=== PATIENT | male | born 1980 | race African-American/Black ===

== ENCOUNTER 2017-08-27 07:41 | Emergency (ER) | payer BC, OTHER ==
--- NOTE | 2017-08-27 08:38 | EDM.PDOC ---
ED HPI GENERAL MEDICAL PROBLEM - General Chief Complaint: Lower Extremity Injury/Pain Stated Complaint: LEFT HIP PAIN Time Seen by Provider: 08/27/17 08:38 - History of Present Illness INITIAL COMMENTS - FREE TEXT/NARRATIVE: HISTORY AND PHYSICAL: History of present illness: Patient is a 37-year-old black male presents with concern of left buttock pain radiation down his left thigh he denies trauma numbness weakness incontinence or retention bowel or bladder he denies back pain Review of systems: As per history of present illness and below otherwise all systems reviewed and negative. Past medical history: As per history of present illness and as reviewed below otherwise noncontributory. Surgical history: As per history of present illness and as reviewed below otherwise noncontributory. Social history: No reported history of drug or alcohol abuse. Family history: As per history of present illness and as reviewed below otherwise noncontributory. Physical exam: HEENT: Atraumatic, normocephalic, pupils reactive, negative for conjunctival pallor or scleral icterus, mucous membranes moist, throat clear, neck supple, nontender, trachea midline. Lungs: Clear to auscultation, breath sounds equal bilaterally, chest nontender. Heart: S1S2, regular, negative for clicks, rubs, or JVD. Abdomen: Soft, nondistended, nontender. Negative for masses or hepatosplenomegaly. Negative for costovertebral tenderness. Pelvis: Stable nontender. Genitourinary: Deferred. Rectal: Deferred. Extremities: Patient has pain over his left sciatic notch extremities are atraumatic neurovascular exams unremarkable. Neuro: Awake, alert, oriented. Cranial nerves II through XII unremarkable. Cerebellum unremarkable. Motor and sensory unremarkable throughout. Exam nonfocal. Diagnostics: X-ray left hip CBC CMP and CRP ESR Therapeutics: None Impression: # 1 sciatica Definitive disposition and diagnosis as appropriate pending reevaluation and review of above. Left Hip Pain Score (Numeric/FACES): 9 - Related Data Allergies Allergy/AdvReac Type Severity Reaction Status Date / Time No Known Allergies Allergy Verified 08/27/17 07:45 Home Meds: Home Meds amLODIPine [Norvasc] 5 mg PO DAILY 07/16/16 [History] Past Medical History Cardiovascular History: Reports: Hypertension Neurological History: Reports: Other (See Below) Other Neuro History: hx seizure as a kid - Infectious Disease History Infectious Disease History: Reports: Chicken Pox Social & Family History - Family History Family Medical History: Noncontributory - Tobacco Use Smoking Status *Q: Never Smoker - Caffeine Use Caffeine Use: Reports: None - Alcohol Use Days Per Week of Alcohol Use: 0 - Recreational Drug Use Recreational Drug Use: No Review of Systems - Review of Systems Review Of Systems: ROS reveals no pertinent complaints other than HPI. ED EXAM, GENERAL - Physical Exam Exam: See Below (See dictation) Course - Vital Signs Last Recorded V/S: Last Vital Signs Temp 36.7 C 08/27/17 07:55 Pulse 85 08/27/17 07:55 Resp 18 08/27/17 07:55 BP 141/104 H 08/27/17 07:55 Pulse Ox 98 08/27/17 07:55 - Orders/Labs/Meds Orders: Active Orders 24 hr Category Date Time Status Hip Min 2V or 3V w Pelvis Rt [CR] Stat Exams 08/27/17 08:13 Ordered C-REACTIVE PROTEIN [CHEM] Stat Lab 08/27/17 08:30 Received CBC WITH AUTO DIFF [HEME] Stat Lab 08/27/17 08:30 Received SEDIMENTATION RATE AUTO [HEME] Stat Lab 08/27/17 08:30 Received Departure - Departure Time of Disposition: 08:37 Disposition: Home, Self-Care 01 Condition: Good Clinical Impression: Sciatica - Discharge Information Referrals: Maura Barone [employer]EM[employer] [Primary Care Provider] - Additional Instructions: The following information is given to patients seen in the emergency department who are being discharged to home. This information is to outline your options for follow-up care. We provide all patients seen in our emergency department with a follow-up referral. The need for follow-up, as well as the timing and circumstances, are variable depending upon the specifics of your emergency department visit. If you don't have a primary care physician on staff, we will provide you with a referral. We always advise you to contact your personal physician following an emergency department visit to inform them of the circumstance of the visit and for follow-up with them and/or the need for any referrals to a consulting specialist. The emergency department will also refer you to a specialist when appropriate. This referral assures that you have the opportunity for followup care with a specialist. All of these measure are taken in an effort to provide you with optimal care, which includes your followup. Under all circumstances we always encourage you to contact your private physician who remains a resource for coordinating your care. When calling for followup care, please make the office aware that this follow-up is from your recent emergency room visit. If for any reason you are refused follow-up, please contact the [facility] emergency department at and asked to speak to the emergency department charge nurse. [facility] [address] [place] [id number] Medrol Dosepak Naprosyn as prescribed pulse schedule appointment primary care clinic above return as needed as discussed - My Orders Last 24 Hours: My Active Orders 08/27/17 08:13 Hip Min 2V or 3V w Pelvis Rt [CR] Stat 08/27/17 08:30 C-REACTIVE PROTEIN [CHEM] Stat CBC WITH AUTO DIFF [HEME] Stat SEDIMENTATION RATE AUTO [HEME] Stat - Assessment/Plan Last 24 Hours: My Active Orders 08/27/17 08:13 Hip Min 2V or 3V w Pelvis Rt [CR] Stat 08/27/17 08:30 C-REACTIVE PROTEIN [CHEM] Stat CBC WITH AUTO DIFF [HEME] Stat SEDIMENTATION RATE AUTO [HEME] Stat
[2017-08-27 09:57] VITALS: BP 154/103
--- NOTE | 2017-08-28 18:41 | CR ---
EXAM DATE: 08/27/17 PATIENT'S AGE: 37 Patient: ADEEL LEON Facility: [place], [place] Site . Site : [id number] Study: XRay Extremity Left [id number]/21/2018 8:59:38 AM Ordering Physician: Dasia Mcwilliams Final Report: INDICATION: Hip pain Technique: 2 views of the left hip AP pelvis. FINDINGS: There is normal alignment. No acute fractures. Left hip joint is preserved. Bony pelvis appears intact. IMPRESSION: 1. Unremarkable study. Dictated by Tia Quevedo MD @ Aug 27 2017 9:00AM (Electronic Signature) Report Signed by Proxy. NISHA
== END 2017-08-27 09:55 | disposition home or self-care (01) ==
LOC: MW.ED 07:41
DX: M54.42 Lumbago with sciatica, left side (principal)
CPT/HCPCS: 36415; 73502-26-LT; 73502-LT; 85025; 85652; 86140; 99283

== ENCOUNTER 2020-09-09 01:34 | Emergency (ER) | payer OTHER ==
[2020-09-09] MEDS ORDERED: Sodium Chloride 0.9% 1,000 ML IV ONE (02:14)
[2020-09-09] MEDS ORDERED: Famotidine 20 MG/2 ML SDV IVPUSH ONE (02:19)
[2020-09-09] MEDS ORDERED: Alum Hydrox/Mag Hydrox/Simeth 15 ML, Lidocaine 2% 5 ML PO ONE ×2 (02:19)
--- NOTE | 2020-09-09 02:19 | EDM.PDOC ---
<Vic Hercules - Last Filed: 09/09/20 07:03> ED HPI GENERAL MEDICAL PROBLEM - General Chief Complaint: Abdominal Pain Stated Complaint: ABDOMINAL PAIN Time Seen by Provider: 09/09/20 02:15 Source of Information: Reports: Patient History Limitations: Reports: No Limitations - History of Present Illness INITIAL COMMENTS - FREE TEXT/NARRATIVE: Patient is a 40-year-old male who presents today for epigastric pain. Patient states the pain started a few hours ago and has not been associated with any events. Patient states he nothing makes the pain better has not taken any medication for it. Patient denies any nausea vomiting diarrhea. Patient that she has similar pain back in March but did not go to a hospital. Patient denies shortness of breath cough or other complaints. Abdomen Pain Score (Numeric/FACES): 10 - Related Data Allergies Allergy/AdvReac Type Severity Reaction Status Date / Time No Known Allergies Allergy Verified 09/09/20 02:14 Home Meds: Home Meds Losartan Potassium 50 mg PO DAILY 09/09/20 [History] amLODIPine Besylate [Amlodipine Besylate] 10 mg PO DAILY 09/09/20 [History] Past Medical History HEENT History: Reports: None Cardiovascular History: Reports: Hypertension Respiratory History: Reports: None Gastrointestinal History: Reports: None Genitourinary History: Reports: None Musculoskeletal History: Reports: None Neurological History: Reports: None Psychiatric History: Reports: None Endocrine/Metabolic History: Reports: None Hematologic History: Reports: None Immunologic History: Reports: None Oncologic (Cancer) History: Reports: None Dermatologic History: Reports: None - Infectious Disease History Infectious Disease History: Reports: None - Past Surgical History Head Surgeries/Procedures: Reports: None ED ROS GENERAL - Review of Systems Review Of Systems: See Below Constitutional: Reports: No Symptoms HEENT: Reports: No Symptoms Respiratory: Reports: No Symptoms Cardiovascular: Reports: No Symptoms Endocrine: Reports: No Symptoms GI/Abdominal: Reports: Abdominal Pain : Reports: No Symptoms Musculoskeletal: Reports: No Symptoms Skin: Reports: No Symptoms Neurological: Reports: No Symptoms Psychiatric: Reports: No Symptoms Hematologic/Lymphatic: Reports: No Symptoms Immunologic: Reports: No Symptoms ED EXAM, GI/ABD - Physical Exam Exam: See Below Exam Limited By: No Limitations General Appearance: Alert, WD/WN, No Apparent Distress Head: Atraumatic Respiratory/Chest: No Respiratory Distress, Lungs Clear, Normal Breath Sounds Cardiovascular: Regular Rate, Rhythm GI/Abdominal Exam: Normal Bowel Sounds, Soft, Tender (diffusely ) Extremities: Normal Inspection, Normal Capillary Refill Neurological: Alert, Oriented, CN II-XII Intact, Normal Cognition, Normal Gait #1 Interpretation EKG Date: 09/09/20 Time: 02:00 Rhythm: NSR Rate (Beats/Min): 75 ST-T: Normal Course - Re-Assessments/Exams Free Text/Narrative Re-Assessment/Exam: 09/09/20 07:03 CT scan shows some possible pericholecystic fluid with some gallbladder thickening. Will get ultrasound to confirm diagnosis. Patient has cholelithiasis with some stones in the neck. Patient has no elevation of his bilirubin or alk phos. There is slight elevation of AST ALT.we consulted general surgery because patient still has significant amount of pain. Dr. Meraz will come in and evaluate the patient to see if patient needs to have her gallbladder taken out today or can be done as outpatient. Departure - Departure Time of Disposition: 07:04 Disposition: Home, Self-Care 01 Condition: Good Clinical Impression: Abdominal pain, Cholelithiasis - Discharge Information *PRESCRIPTION DRUG MONITORING PROGRAM REVIEWED*: Not Applicable *COPY OF PRESCRIPTION DRUG MONITORING REPORT IN PATIENT SIN: Not Applicable Instructions: Abdominal Pain, Adult, Cholelithiasis Referrals: Sang Meraz MD [Physician] - 3 Days Forms: ED Department Discharge Additional Instructions: The need for follow-up, as well as the timing and circumstances, are variable depending upon the specifics of your emergency department visit. If you don't have a primary care physician on staff, we will provide you with a referral. We always advise you to contact your personal physician following an emergency department visit to inform them of the circumstance of the visit and for follow-up with them and/or the need for any referrals to a consulting specialist. The emergency department will also refer you to a specialist when appropriate. This referral assures that you have the opportunity for follow-up care with a specialist. All of these measure are taken in an effort to provide you with optimal care, which includes your follow-up. Under all circumstances we always encourage you to contact your private physician who remains a resource for coordinating your care. When calling for follow-up care, please make the office aware that this follow-up is from your recent emergency room visit. If for any reason you are refused follow-up, please contact the [facility] Emergency Department at and asked to speak to the emergency department charge nurse. If you do not have a primary care doctor, please follow up with the clinics below within 3-5 days. [facility] - General Surgery Professional Building [address] [place] [address], [address] [place] [address] - Assessment/Plan Assessment:: Patient is a 40-year-old male presents today for diffuse abdominal pain. Unclear cause of pain will obtain labs possible CT scan and provide pain control. <Sánchez Putnam - Last Filed: 09/09/20 08:13> Course - Vital Signs Last Recorded V/S: Last Vital Signs Temp 98.5 F 09/09/20 06:05 Pulse 77 09/09/20 06:05 Resp 18 09/09/20 06:05 BP 139/90 09/09/20 06:05 Pulse Ox 96 09/09/20 06:05 - Orders/Labs/Meds Labs: Laboratory Tests 09/09/20 09/09/20 09/09/20 Range/Units 02:05 02:05 02:05 WBC 7.49 (4.0-11.0) K/uL RBC 5.39 (4.50-5.90) M/uL Hgb 15.5 (13.0-17.0) g/dL Hct 43.0 (38.0-50.0) % MCV 79.8 L (80.0-98.0) fL MCH 28.8 (27.0-32.0) pg MCHC 36.0 (31.0-37.0) g/dL RDW Std Deviation 37.7 (28.0-62.0) fl RDW Coeff of [place] 13 (11.0-15.0) % Plt Count 253 (150-400) K/uL MPV 9.90 (7.40-12.00) fL Neut % (Auto) 32.7 L (48.0-80.0) % Lymph % (Auto) 60.9 H (16.0-40.0) % [place] % (Auto) 4.4 (0.0-15.0) % Eos % (Auto) 1.7 (0.0-7.0) % Baso % (Auto) 0.3 (0.0-1.5) % Neut # (Auto) 2.5 (1.4-5.7) K/uL Lymph # (Auto) 4.6 H (0.6-2.4) K/uL [place] # (Auto) 0.3 (0.0-0.8) K/uL Eos # (Auto) 0.1 (0.0-0.7) K/uL Baso # (Auto) 0.0 (0.0-0.1) K/uL Nucleated RBC % 0.0 /100WBC Nucleated RBCs # 0 K/uL Lactate 2.3 H* (0.20-2.00) mmol/L Sodium 142 (136-148) mmol/L Potassium 3.6 (3.5-5.1) mmol/L Chloride 103 (98-107) mmol/L Carbon Dioxide 26.8 (21.0-32.0) mmol/L BUN 15 (7.0-18.0) mg/dL Creatinine 1.3 (0.8-1.3) mg/dL Est Cr Clr Drug Dosing 77.21 mL/min Estimated GFR (MDRD) > 60.0 ml/min Glucose 135 H (74-106) mg/dL Calcium 9.1 (8.5-10.1) mg/dL Magnesium 1.9 (1.8-2.4) mg/dL Total Bilirubin 0.3 (0.2-1.0) mg/dL AST 66 H (15-37) IU/L ALT 74 H (14-63) IU/L Alkaline Phosphatase 71 (46-116) U/L Creatine Kinase 473 H (26-308) U/L Troponin I < 0.050 (0.000-0.056) ng/mL Total Protein 8.2 (6.4-8.2) g/dL Albumin 3.7 (3.4-5.0) g/dL Globulin 4.5 H (2.6-4.0) g/dL Albumin/Globulin Ratio 0.8 L (0.9-1.6) Lipase 178 (73-393) U/L Urine Color Urine Appearance Urine pH (5.0-8.0) Ur Specific [place] (1.001-1.035) Urine Protein (NEGATIVE) mg/dL Urine Glucose (UA) (NEGATIVE) mg/dL Urine Ketones (NEGATIVE) mg/dL Urine Occult Blood (NEGATIVE) Urine Nitrite (NEGATIVE) Urine Bilirubin (NEGATIVE) Urine Urobilinogen (<2.0) EU/dL Ur Leukocyte Esterase (NEGATIVE) Urine RBC (0-2/HPF) Urine WBC (0-5/HPF) Ur Epithelial Cells (NONE-FEW) Urine Bacteria (NEGATIVE) Urine Mucus (NONE-MOD) Influenza Type A RNA (NEGATIVE) Influenza Type B RNA (NEGATIVE) SARS-CoV-2 RNA (VY) (NEGATIVE) 09/09/20 09/09/20 09/09/20 Range/Units 03:40 04:10 04:10 WBC (4.0-11.0) K/uL RBC (4.50-5.90) M/uL Hgb (13.0-17.0) g/dL Hct (38.0-50.0) % MCV (80.0-98.0) fL MCH (27.0-32.0) pg MCHC (31.0-37.0) g/dL RDW Std Deviation (28.0-62.0) fl RDW Coeff of [place] (11.0-15.0) % Plt Count (150-400) K/uL MPV (7.40-12.00) fL Neut % (Auto) (48.0-80.0) % Lymph % (Auto) (16.0-40.0) % [place] % (Auto) (0.0-15.0) % Eos % (Auto) (0.0-7.0) % Baso % (Auto) (0.0-1.5) % Neut # (Auto) (1.4-5.7) K/uL Lymph # (Auto) (0.6-2.4) K/uL [place] # (Auto) (0.0-0.8) K/uL Eos # (Auto) (0.0-0.7) K/uL Baso # (Auto) (0.0-0.1) K/uL Nucleated RBC % /100WBC Nucleated RBCs # K/uL Lactate 1.7 (0.20-2.00) mmol/L Sodium (136-148) mmol/L Potassium (3.5-5.1) mmol/L Chloride (98-107) mmol/L Carbon Dioxide (21.0-32.0) mmol/L BUN (7.0-18.0) mg/dL Creatinine (0.8-1.3) mg/dL Est Cr Clr Drug Dosing mL/min Estimated GFR (MDRD) ml/min Glucose (74-106) mg/dL Calcium (8.5-10.1) mg/dL Magnesium (1.8-2.4) mg/dL Total Bilirubin (0.2-1.0) mg/dL AST (15-37) IU/L ALT (14-63) IU/L Alkaline Phosphatase (46-116) U/L Creatine Kinase 437 H (26-308) U/L Troponin I (0.000-0.056) ng/mL Total Protein (6.4-8.2) g/dL Albumin (3.4-5.0) g/dL Globulin (2.6-4.0) g/dL Albumin/Globulin Ratio (0.9-1.6) Lipase (73-393) U/L Urine Color YELLOW Urine Appearance CLEAR Urine pH 7.0 (5.0-8.0) Ur Specific [place] 1.010 (1.001-1.035) Urine Protein NEGATIVE (NEGATIVE) mg/dL Urine Glucose (UA) NEGATIVE (NEGATIVE) mg/dL Urine Ketones NEGATIVE (NEGATIVE) mg/dL Urine Occult Blood NEGATIVE (NEGATIVE) Urine Nitrite NEGATIVE (NEGATIVE) Urine Bilirubin NEGATIVE (NEGATIVE) Urine Urobilinogen 0.2 (<2.0) EU/dL Ur Leukocyte Esterase NEGATIVE (NEGATIVE) Urine RBC 0-2 (0-2/HPF) Urine WBC 0-1 (0-5/HPF) Ur Epithelial Cells RARE (NONE-FEW) Urine Bacteria RARE (NEGATIVE) Urine Mucus LIGHT (NONE-MOD) Influenza Type A RNA (NEGATIVE) Influenza Type B RNA (NEGATIVE) SARS-CoV-2 RNA (VY) (NEGATIVE) 09/09/20 09/09/20 Range/Units 04:10 06:00 WBC (4.0-11.0) K/uL RBC (4.50-5.90) M/uL Hgb (13.0-17.0) g/dL Hct (38.0-50.0) % MCV (80.0-98.0) fL MCH (27.0-32.0) pg MCHC (31.0-37.0) g/dL RDW Std Deviation (28.0-62.0) fl RDW Coeff of [place] (11.0-15.0) % Plt Count (150-400) K/uL MPV (7.40-12.00) fL Neut % (Auto) (48.0-80.0) % Lymph % (Auto) (16.0-40.0) % [place] % (Auto) (0.0-15.0) % Eos % (Auto) (0.0-7.0) % Baso % (Auto) (0.0-1.5) % Neut # (Auto) (1.4-5.7) K/uL Lymph # (Auto) (0.6-2.4) K/uL [place] # (Auto) (0.0-0.8) K/uL Eos # (Auto) (0.0-0.7) K/uL Baso # (Auto) (0.0-0.1) K/uL Nucleated RBC % /100WBC Nucleated RBCs # K/uL Lactate (0.20-2.00) mmol/L Sodium (136-148) mmol/L Potassium (3.5-5.1) mmol/L Chloride (98-107) mmol/L Carbon Dioxide (21.0-32.0) mmol/L BUN (7.0-18.0) mg/dL Creatinine (0.8-1.3) mg/dL Est Cr Clr Drug Dosing mL/min Estimated GFR (MDRD) ml/min Glucose (74-106) mg/dL Calcium (8.5-10.1) mg/dL Magnesium (1.8-2.4) mg/dL Total Bilirubin (0.2-1.0) mg/dL AST (15-37) IU/L ALT (14-63) IU/L Alkaline Phosphatase (46-116) U/L Creatine Kinase (26-308) U/L Troponin I < 0.050 (0.000-0.056) ng/mL Total Protein (6.4-8.2) g/dL Albumin (3.4-5.0) g/dL Globulin (2.6-4.0) g/dL Albumin/Globulin Ratio (0.9-1.6) Lipase (73-393) U/L Urine Color Urine Appearance Urine pH (5.0-8.0) Ur Specific [place] (1.001-1.035) Urine Protein (NEGATIVE) mg/dL Urine Glucose (UA) (NEGATIVE) mg/dL Urine Ketones (NEGATIVE) mg/dL Urine Occult Blood (NEGATIVE) Urine Nitrite (NEGATIVE) Urine Bilirubin (NEGATIVE) Urine Urobilinogen (<2.0) EU/dL Ur Leukocyte Esterase (NEGATIVE) Urine RBC (0-2/HPF) Urine WBC (0-5/HPF) Ur Epithelial Cells (NONE-FEW) Urine Bacteria (NEGATIVE) Urine Mucus (NONE-MOD) Influenza Type A RNA NEGATIVE (NEGATIVE) Influenza Type B RNA NEGATIVE (NEGATIVE) SARS-CoV-2 RNA (VY) POSITIVE H (NEGATIVE) Meds: Medications Discontinued Medications Generic Name Dose Route Start Last Admin Trade Name Freq PRN Reason Stop Dose Admin Al Hydroxide/Mg Hydroxide 15 0 ml 09/09/20 02:19 09/09/20 02:30 ml/ Lidocaine HCl 5 ml PO 09/09/20 02:20 20 each ONETIME ONE Administration Famotidine 20 mg 09/09/20 02:19 09/09/20 02:25 Pepcid IVPUSH 09/09/20 02:20 20 mg ONETIME ONE Administration Sodium Chloride 1,000 mls @ 999 mls/hr 09/09/20 02:14 09/09/20 02:22 Normal Saline IV 09/09/20 03:14 999 mls/hr .BOLUS ONE Administration Iopamidol 100 ml 09/09/20 03:17 09/09/20 03:18 Isovue Multipack-370 (76%) IVPUSH 09/09/20 03:18 100 ml ONETIME STA Administration Morphine Sulfate 4 mg 09/09/20 05:11 09/09/20 05:16 Morphine IVPUSH 09/09/20 05:12 4 mg ONETIME ONE Administration - Re-Assessments/Exams Free Text/Narrative Re-Assessment/Exam: 09/09/20 08:09 Dr. Sang Meraz personally assessed the patient at bedside, patient is pain- free at this time, he recommends discharge with outpatient follow-up for scheduled nonemergent cholecystectomy given positive Covid at this time. He exhibits normal vital signs. I advised the patient to return to the ER for reevaluation if symptoms worsened, including fever, worsening pain, or any other worrisome symptoms. I instructed the patient to follow up with Dr. Meraz within 2-3 days. Sepsis Event Note (ED) - Focused Exam Vital Signs: Vital Signs Temp Pulse Resp BP Pulse Ox 09/09/20 06:05 98.5 F 77 18 139/90 96 09/09/20 04:05 75 18 141/90 H 96 09/09/20 02:35 77 18 140/99 H 97 09/09/20 02:00 97.9 F 72 18 153/103 H 97
[2020-09-09 02:36] LABS: BLOOD UREA NITROGEN,BUN 15 mg/dL (7.0-18.0); CARBON DIOXIDE,CO2 26.8 mmol/L (21.0-32.0); CHLORIDE,CL 103 mmol/L (98-107); GLUCOSE RANDOM 135 mg/dL (74-106); LIPASE 178 U/L (73-393); POTASSIUM,K 3.6 mmol/L (3.5-5.1); SODIUM,NA 142 mmol/L (136-148)
--- NOTE | 2020-09-09 03:06 | CR ---
Indication: Epigastric pain Technique: Chest 1 view Comparison: None Findings/Impression: Cardiovascular and mediastinum: Heart size and vasculature are normal in caliber and appearance. Mediastinum is within normal limits. Lungs and pleural space: Lungs are clear. No sign of infiltrate or mass. No sign of pleural effusion. No pneumothorax. Bones and soft tissues: No significant findings. Dictated by Reyes King MD @ Sep 09 2020 3:04AM (Electronically Signed)
[2020-09-09] MEDS ORDERED: Iopamidol 755 MG/ML 500 ML Multipack Bottle IVPUSH STA (03:17)
--- NOTE | 2020-09-09 04:08 | CT ---
INDICATION: Abdominal pain TECHNIQUE: CT abdomen and pelvis acquired with IV contrast. 100 mL of Isovue 370 administered. COMPARISON: None available FINDINGS: Lower chest: Unremarkable. Liver: Unremarkable. Spleen: Unremarkable. Pancreas: Unremarkable. Gallbladder and bile ducts: A moderately distended gallbladder with apparent trace pericholecystic fluid/edema. Slight central intrahepatic biliary prominence without significant extrahepatic biliary dilatation. Adrenal glands: Unremarkable. Kidneys: Unremarkable. GI tract: Mild gastric antral wall prominence could be related to underdistention. No bowel obstruction. A normal appendix. No significant pericolonic changes. Vascular structures: Unremarkable. Lymph nodes: Unremarkable. Miscellaneous: No significant free fluid or free air. A small fat containing umbilical hernia. Pelvic Organs: A grossly unremarkable prostate. Mild bladder wall thickening could be related to underdistention. Bones: Unremarkable for age. IMPRESSION: A distended gallbladder with apparent trace pericholecystic fluid/edema. Correlate clinically and with sonography. No appendicitis, diverticulitis or bowel obstruction. Mild gastric antral wall prominence could be related to under distention. Correlate clinically to exclude PUD. Mild bladder wall thickening versus underdistention. Correlate with urinalysis to exclude a UTI. Please note that all CT scans at this facility use dose modulation, iterative reconstruction, and/or weight-based dosing when appropriate to reduce radiation dose to as low as reasonably achievable. Dictated by Reyes King MD @ Sep 09 2020 3:51AM Signed by Dr. Reyes King @ Sep 09 2020 4:06AM
[2020-09-09] MEDS ORDERED: Morphine 4 MG/ML Syringe IVPUSH ONE (05:11)
--- NOTE | 2020-09-09 05:54 | US ---
Indication: Right upper quadrant pain Technique: Sonography of the abdomen was performed limited to the structures discussed below Comparison: Limited portions of a CT from earlier today Findings: The pancreas is obscured by bowel gas The liver is mildly enlarged measuring 16 centimeters. No focal mass or biliary ductal dilatation. Echogenicity normal There is cholelithiasis. Summer mobile and some appear to be lodged within the neck. There is tenderness to right upper quadrant transducer palpation. Wall thickness is normal 1.9 millimeters and there is no pericholecystic fluid. The common duct measures 5.7 millimeters which is normal The right kidney is unremarkable Impression: Cholelithiasis. Some of the stones appear to be lodged in the neck. There is a sonographic Angel sign but no wall thickening or pericholecystic fluid or biliary ductal dilatation. Dictated by Andrew Mahmood MD @ Sep 09 2020 5:51AM Signed by Dr. Andrew Mahmood @ Sep 09 2020 5:53AM
[2020-09-09 06:12] VITALS: PULSE 77
[2020-09-09 06:51] LABS: CORONAVIRUS COVID-19 NAA POSITIVE (NEGATIVE); INFLUENZA A NAA NEGATIVE (NEGATIVE); INFLUENZA B NAA NEGATIVE (NEGATIVE)
[2020-09-09 08:31] VITALS: BP 148/69
--- NOTE | 2020-09-09 10:04 | CONS ---
DATE OF CONSULTATION: 09/09/2020 DATE OF : 1980 PRIMARY CARE PHYSICIAN: Maura Barone NP HISTORY OF PRESENT ILLNESS: The patient is a pleasant 40-year-old gentleman who said last night he started having some abdominal pain, more right upper quadrant. The patient says he has had this a couple of times in the past. He said once in March and a couple of other times. The patient says in the past, the pain comes usually in the evening, but goes away. This pain he had last night just was not going away, so he came to the ER to get evaluated. The patient denies any nausea or vomiting. Denies any change in bowel habits. The patient did have a CT scan in the ER. It showed a distended gallbladder with potentially some trace pericholecystic fluid. Also showed some mild gastric wall prominence and some mild bladder wall thickening. The patient then underwent an ultrasound of the gallbladder, which showed cholelithiasis with some mobile sounds and some up in the neck of the gallbladder. Gallbladder wall thickness was normal at 1.9 mm. There was no pericholecystic fluid. Common bile duct was 4.7 mm. He did not have an elevated bilirubin nor white cell count. The patient says that his pain was starting to dissipate and feeling much better. The patient also had a positive COVID test. The patient says about a week ago, he had a bad cough after coming back home from [place]. Currently, he denies any symptoms and he is over his cough. PAST MEDICAL HISTORY: Hypertension. CURRENT HOME MEDICATIONS: 1. Norvasc 10 mg p.o. daily. 2. Valsartan 50 mg p.o. daily. ALLERGIES: No known drug allergies. PAST SURGICAL HISTORY: The patient denies any. SOCIAL HISTORY: The patient denies any tobacco use. Denies illicit drug use. He does occasionally use alcohol. FAMILY HISTORY: Father with hypertension. REVIEW OF SYSTEMS: Complete 12-point review of systems was done, was negative except the HPI. PHYSICAL EXAMINATION: GENERAL: The patient is lying comfortably in the ER bed. He is alert and oriented. No acute distress. VITAL SIGNS: Temperature is 98.5, pulse is 77, blood pressure is 148/69, satting 96% on room air. HEENT: Head is normocephalic, atraumatic. Mouth: He is wearing a mask. LUNGS: Clear to auscultation bilaterally. HEART: Regular rate and rhythm. No murmur appreciated. ABDOMEN: Soft and nondistended and some just vague pain to deep palpation in the right upper quadrant. The patient says it is much better now. EXTREMITIES: No edema. NEUROLOGICAL: Grossly, no motor or neurologic deficits noted. IMAGING: As per HPI. LABORATORY DATA: White cell count is 7.49, hemoglobin is 15.5, platelet count is 253. Lactic acid 1.7. Sodium is 142, potassium 3.6, chloride is 103, BUN is 15, creatinine 1.3, glucose is 135, total bilirubin is 0.3, AST is 66, ALT is 75, alk phos is 71, lipase is 178. UA is negative. COVID is positive. ASSESSMENT AND PLAN: This is a pleasant 40-year-old gentleman who looks like he likely has symptomatic cholelithiasis. He has had a couple of episodes in the past. The patient says the pain sometimes seems to be associated with eating, but not all the time. He had ultrasound, which showed some gallstones. Now, the pain is dissipated. Did go over with the patient what a gallbladder was and what is its functionality. I went over possible treatment of laparoscopic cholecystectomy. I went over the risks, goals, and alternatives to procedures which include, but not limited to, bleeding, infection, injury to nearby structures such as common bile duct or duodenum, bile leak, needing to convert to an open, hernia formation, and that this could be something other than his gallbladder. The patient understands. Did go over since his pain has dissipated, does not have an elevated total bilirubin, that we could do this electively, especially since he is coronavirus positive, just getting over his cough a week ago. However, he should follow up in clinic with myself and we could plan for elective cholecystectomy after his 4-week waiting period is over. The patient should stay on a low-fat diet because fatty food may trigger another gallbladder attack. If he has another attack and it is severe, he might need to go to the ER again. The patient understands. All the patient's questions were answered. Did discuss the patient with the ER physician. Also went over with the patient that he should follow the CDC guidelines for self isolation since he tested positive for COVID. POLA SANTOS /[id number] NISHA
== END 2020-09-09 08:23 | disposition home or self-care (01) ==
LOC: MW.ED 01:34 → MERGE 01:34 → MW.ED 08:23
DX: U07.1 COVID-19 (principal); K80.20 Calculus of gallbladder without cholecystitis without obstruction; I10 Essential (primary) hypertension; Z79.899 Other long term (current) drug therapy
CPT/HCPCS: 0240U; 36415; 71045; 74177; 76705; 80053; 81001; 82550; 83605; 83690; 83735; 84484; 85025; 93005; 96374; 96375; 99284; A9270; J2270; J3490; J7030; Q9967; 93010

== ENCOUNTER 2020-10-12 18:44 | Emergency (ER) | payer OTHER ==
[2020-10-12 20:23] LABS: BLOOD UREA NITROGEN,BUN 14 mg/dL (7.0-18.0); CARBON DIOXIDE,CO2 28.1 mmol/L (21.0-32.0); CHLORIDE,CL 105 mmol/L (98-107); GLUCOSE RANDOM 150 mg/dL (74-106); POTASSIUM,K 3.6 mmol/L (3.5-5.1); SODIUM,NA 143 mmol/L (136-148)
[2020-10-12] MEDS ORDERED: Morphine 4 MG/ML Syringe IVPUSH ONE (20:40)
[2020-10-12] MEDS ORDERED: Ondansetron 4 MG/2 ML SDV IVPUSH ONE (20:40)
[2020-10-12] MEDS ORDERED: Ketorolac 30 MG/ML SDV IVPUSH ONE (20:40)
[2020-10-12] MEDS ORDERED: Iopamidol 755 MG/ML 500 ML Multipack Bottle IVPUSH STA (21:19)
--- NOTE | 2020-10-12 22:02 | CT ---
HISTORY: Periumbilical abdominal pain. History of gallstones. TECHNIQUE: Intravenous contrast enhanced CT of the abdomen and pelvis. 100 mL of Isovue-370 intravenous contrast administered. COMPARISON: Ultrasound 09/09/2020. CT 09/09/2020. FINDINGS: There is no liver mass. No biliary ductal dilatation. The gallbladder appears mildly distended. Gallstones seen on the prior ultrasound are noncalcified and not apparent on this CT. Spleen size is within normal limits. The adrenal glands are normal. There is no focal pancreatic abnormality. Symmetric nephrograms. No renal mass or hydronephrosis. There is no obstructive urinary calculus. Urinary bladder does not appear excessively distended. Prostatic calcifications may be postinflammatory. - Moderate distention of the stomach. Correlation may be made with time from most recent meal. No small bowel obstruction. No appendicitis. No acute diverticulitis. No fluid collection or free intraperitoneal air. - No abdominal aortic aneurysm. No adenopathy. - Small fat containing umbilical hernia is unchanged. - No infiltrate within the lung bases nor pleural effusion. - No acute fractures. IMPRESSION: 1. Mildly distended gallbladder without surrounding inflammatory change seen by CT. No biliary ductal dilatation. 2. No bowel obstruction, appendicitis or diverticulitis. 3. Moderate distention of the stomach. Correlation may be made with time from most recent meal. 4. No change in small fat containing umbilical hernia. Please note that all CT scans at this facility use dose modulation, iterative reconstruction, and/or weight-based dosing when appropriate to reduce radiation dose to as low as reasonably achievable. Dictated by Roberto Gutierrez MD @ Oct 12 2020 10:00PM Signed by Dr. Roberto Gutierrez @ Oct 12 2020 10:00PM
--- NOTE | 2020-10-12 22:16 | EDM.PDOC ---
ED HPI GENERAL MEDICAL PROBLEM - General Chief Complaint: Abdominal Pain Stated Complaint: ABDOMINAL PAIN Time Seen by Provider: 10/12/20 20:27 Source of Information: Reports: Patient History Limitations: Reports: No Limitations - History of Present Illness INITIAL COMMENTS - FREE TEXT/NARRATIVE: HISTORY AND PHYSICAL: History of present illness: Patient is a 40-year-old male who presents to the ED today with concern of right upper quadrant abdominal pain that started since 4 PM. Patient states that he was eating around 2-3pm and then starting at 4pm started having RUQ abdominal pain. Patient states that if he were to eat, this would worsen his symptoms. Patient was told that he did have gallbladder issues in the past and states that he also is scheduled to get an upper endoscopy to take a look at his stomach with Dr. Meraz general surgeon. Patient states he is not quite sure why he is getting the EGD. Patient states that he has not taken anything for his sympto ms. Patient denies any abdominal surgeries. Patient denies fever, chills, chest pain, shortness of breath, or cough. Denies headache, neck stiff ness, change in vision, syncope, or near syncope. Denies nausea, vomiting, diarrhea, constipation, or dysuria. Has not noted any blood in urine or stool. Patient has been eating and drinking appropriately. Review of systems: As per history of present illness and below otherwise all systems reviewed and negative. Past medical history: As per history of present illness and as reviewed below otherwise noncontributory. Surgical history: As per history of present illness and as reviewed below otherwise noncontributory. Social history: See social history for further information Family history: As per history of present illness and as reviewed below otherwise noncontributory. Physical exam: General: Patient is alert, oriented, and in no acute distress. Patient laying comfortably on exam table. Vitals stable and reviewed by me. HEENT: Atraumatic, normocephalic, pupils equal and reactive bilaterally, negative for conjunctival pallor or scleral icterus, mucous membranes moist, TMs normal bilaterally, throat clear, neck supple, nontender, trachea midline. No drooling or trismus noted. No meningeal signs. No hot potato voice noted. Lungs: Clear to auscultation, breath sounds equal bilaterally, chest nontender. Heart: S1S2, regular rate and rhythm without overt murmur Abdomen: Soft, nondistended, moderate RUQ tenderness with negative mckenzie sign. Negative for masses or hepatosplenomegaly. Negative for costovertebral tenderness. Pelvis: Stable nontender. Genitourinary: Deferred. Rectal: Deferred. Skin: Intact, warm, dry. No lesions or rashes noted. Extremities: Atraumatic, negative for cords or calf pain. Neurovascular unremark able. Neuro: Awake, alert, oriented. Cranial nerves II through XII unremarkable. Cerebellum unremarkable. Motor and sensory unremarkable throughout. Exam nonfocal. Notes: On initial exam, patient does have moderate right upper quadrant tenderness but is vitally stable. After therapeutics given today in the ED, patient is much more comfortable on reevaluation. Patient has an appointment in a few days with Dr. Meraz, general surgery. Discussed importance for follow-up with Dr. Meraz as well as his primary care provider. All incidental findings today discussed with patient. Signs and symptoms that were prompt return to the ED thoroughly discussed with patient. Voices understanding and is agreeable to plan of care. Denies any further questions or concerns at this time. Diagnostics: CBC, CMP, UA, Lipase, Abd/Pelvic CT w cont, RUQ US Therapeutics: NS, Toradol, Zofran, Morphine Prescription: None Impression: Symptomatic cholelithiasis RUQ abdominal pain Plan: 1. Eat a low-fat diet as directed and as discussed. You can alternate ibuprofen and Tylenol as directed for pain and discomfort. 2. Follow-up with a general surgeon as discussed. Return to the ED as needed and as discussed. Definitive disposition and diagnosis as appropriate pending reevaluation and review of above. Abdomen Pain Score (Numeric/FACES): 10 - Related Data Allergies Allergy/AdvReac Type Severity Reaction Status Date / Time No Known Allergies Allergy Verified 10/15/20 11:29 Home Meds: Home Meds Losartan Potassium 50 mg PO DAILY 09/09/20 [History] amLODIPine Besylate [Amlodipine Besylate] 10 mg PO DAILY 09/09/20 [History] Past Medical History HEENT History: Reports: Other (See Below) Other HEENT History: wears glasses/contacts Cardiovascular History: Reports: Hypertension Respiratory History: Reports: Other (See Below) Other Respiratory History: states he snores- was scheduled for a sleep study but "it didn't work out" Gastrointestinal History: Reports: Other (See Below) Other Gastrointestinal History: occasional heartburn Genitourinary History: Reports: None Musculoskeletal History: Reports: Arthritis Neurological History: Reports: None, Other (See Below) Other Neuro History: hx seizure as a kid Psychiatric History: Reports: None Endocrine/Metabolic History: Reports: None Insulin Pump Model and Saw Boss: None Hematologic History: Reports: None Immunologic History: Reports: None Oncologic (Cancer) History: Reports: None Dermatologic History: Reports: None - Infectious Disease History Infectious Disease History: Reports: Chicken Pox, None - Past Surgical History Head Surgeries/Procedures: Reports: None Social & Family History - Family History Family Medical History: No Pertinent Family History - Caffeine Use Caffeine Use: Reports: None - Recreational Drug Use Recreational Drug Use: No ED ROS GENERAL - Review of Systems Review Of Systems: Comprehensive ROS is negative, except as noted in HPI. ED EXAM, GENERAL - Physical Exam Exam: See Below (see dictation) Course - Vital Signs Last Recorded V/S: Last Vital Signs Temp 96.8 F L 10/12/20 23:20 Pulse 86 10/12/20 23:20 Resp 18 10/12/20 23:20 BP 130/88 10/12/20 23:20 Pulse Ox 97 10/12/20 23:20 - Orders/Labs/Meds Labs: Laboratory Tests 10/12/20 10/12/20 10/12/20 Range/Units 19:41 19:41 19:41 WBC 10.16 (4.0-11.0) K/uL RBC 5.00 (4.50-5.90) M/uL Hgb 14.4 (13.0-17.0) g/dL Hct 39.8 (38.0-50.0) % MCV 79.6 L (80.0-98.0) fL MCH 28.8 (27.0-32.0) pg MCHC 36.2 (31.0-37.0) g/dL RDW Std Deviation 39.3 (28.0-62.0) fl RDW Coeff of [place]ch[place] 14 (11.0-15.0) % Plt Count 226 (150-400) K/uL MPV 10.10 (7.40-12.00) fL Neut % (Auto) 74.5 (48.0-80.0) % Lymph % (Auto) 20.6 (16.0-40.0) % [place] % (Auto) 4.3 (0.0-15.0) % Eos % (Auto) 0.5 (0.0-7.0) % Baso % (Auto) 0.1 (0.0-1.5) % Neut # (Auto) 7.6 H (1.4-5.7) K/uL Lymph # (Auto) 2.1 (0.6-2.4) K/uL Kemper # (Auto) 0.4 (0.0-0.8) K/uL Eos # (Auto) 0.1 (0.0-0.7) K/uL Baso # (Auto) 0.0 (0.0-0.1) K/uL Nucleated RBC % 0.0 /100WBC Nucleated RBCs # 0 K/uL Lactate 1.7 (0.20-2.00) mmol/L Sodium 143 (136-148) mmol/L Potassium 3.6 (3.5-5.1) mmol/L Chloride 105 (98-107) mmol/L Carbon Dioxide 28.1 (21.0-32.0) mmol/L BUN 14 (7.0-18.0) mg/dL Creatinine 1.4 H (0.8-1.3) mg/dL Est Cr Clr Drug Dosing 71.70 mL/min Estimated GFR (MDRD) > 60.0 ml/min Glucose 150 H (74-106) mg/dL Calcium 9.0 (8.5-10.1) mg/dL Total Bilirubin 0.4 (0.2-1.0) mg/dL AST 84 H (15-37) IU/L ALT 77 H (14-63) IU/L Alkaline Phosphatase 67 (46-116) U/L Total Protein 8.3 H (6.4-8.2) g/dL Albumin 3.8 (3.4-5.0) g/dL Globulin 4.5 H (2.6-4.0) g/dL Albumin/Globulin Ratio 0.8 L (0.9-1.6) Urine Color Urine Appearance Urine pH (5.0-8.0) Ur Specific [place] (1.001-1.035) Urine Protein (NEGATIVE) mg/dL Urine Glucose (UA) (NEGATIVE) mg/dL Urine Ketones (NEGATIVE) mg/dL Urine Occult Blood (NEGATIVE) Urine Nitrite (NEGATIVE) Urine Bilirubin (NEGATIVE) Urine Urobilinogen (<2.0) EU/dL Ur Leukocyte Esterase (NEGATIVE) 10/12/20 Range/Units 21:45 WBC (4.0-11.0) K/uL RBC (4.50-5.90) M/uL Hgb (13.0-17.0) g/dL Hct (38.0-50.0) % MCV (80.0-98.0) fL MCH (27.0-32.0) pg MCHC (31.0-37.0) g/dL RDW Std Deviation (28.0-62.0) fl RDW Coeff of [place] (11.0-15.0) % Plt Count (150-400) K/uL MPV (7.40-12.00) fL Neut % (Auto) (48.0-80.0) % Lymph % (Auto) (16.0-40.0) % [place] % (Auto) (0.0-15.0) % Eos % (Auto) (0.0-7.0) % Baso % (Auto) (0.0-1.5) % Neut # (Auto) (1.4-5.7) K/uL Lymph # (Auto) (0.6-2.4) K/uL Kem[place] # (Auto) (0.0-0.8) K/uL Eos # (Auto) (0.0-0.7) K/uL Baso # (Auto) (0.0-0.1) K/uL Nucleated RBC % /100WBC Nucleated RBCs # K/uL Lactate (0.20-2.00) mmol/L Sodium (136-148) mmol/L Potassium (3.5-5.1) mmol/L Chloride (98-107) mmol/L Carbon Dioxide (21.0-32.0) mmol/L BUN (7.0-18.0) mg/dL Creatinine (0.8-1.3) mg/dL Est Cr Clr Drug Dosing mL/min Estimated GFR (MDRD) ml/min Glucose (74-106) mg/dL Calcium (8.5-10.1) mg/dL Total Bilirubin (0.2-1.0) mg/dL AST (15-37) IU/L ALT (14-63) IU/L Alkaline Phosphatase (46-116) U/L Total Protein (6.4-8.2) g/dL Albumin (3.4-5.0) g/dL Globulin (2.6-4.0) g/dL Albumin/Globulin Ratio (0.9-1.6) Urine Color YELLOW Urine Appearance CLEAR Urine pH 7.0 (5.0-8.0) Ur Specific [place] 1.010 (1.001-1.035) Urine Protein NEGATIVE (NEGATIVE) mg/dL Urine Glucose (UA) NEGATIVE (NEGATIVE) mg/dL Urine Ketones NEGATIVE (NEGATIVE) mg/dL Urine Occult Blood NEGATIVE (NEGATIVE) Urine Nitrite NEGATIVE (NEGATIVE) Urine Bilirubin NEGATIVE (NEGATIVE) Urine Urobilinogen 2.0 H (<2.0) EU/dL Ur Leukocyte Esterase NEGATIVE (NEGATIVE) Meds: Medications Discontinued Medications Generic Name Dose Route Start Last Admin Trade Name Freq PRN Reason Stop Dose Admin Iopamidol 100 ml 10/12/20 21:19 10/12/20 21:20 Isovue Multipack-370 (76%) IVPUSH 10/12/20 21:20 100 ml ONETIME STA Administration Ketorolac Tromethamine 30 mg 10/12/20 20:40 10/12/20 20:50 Toradol IVPUSH 10/12/20 20:41 30 mg ONETIME ONE Administration Morphine Sulfate 4 mg 10/12/20 20:40 10/12/20 20:51 Morphine IVPUSH 10/12/20 20:41 4 mg ONETIME ONE Administration Ondansetron HCl 4 mg 10/12/20 20:40 10/12/20 20:49 Zofran IVPUSH 10/12/20 20:41 4 mg ONETIME ONE Administration Departure - Departure Time of Disposition: 23:00 Disposition: Home, Self-Care 01 Clinical Impression: Right upper quadrant abdominal pain Cholelithiasis Qualifiers: Cholelithiasis location: other site Biliary obstruction: without biliary obstruction Qualified Code(s): K80.80 - Other cholelithiasis without obstruction - Discharge Information Instructions: Cholelithiasis Referrals: PCP,None [Primary Care Provider] - Forms: ED Department Discharge Additional Instructions: The following information is given to patients seen in the emergency department who are being discharged to home. This information is to outline your options for follow-up care. We provide all patients seen in our emergency department with a follow-up referral. The need for follow-up, as well as the timing and circumstances, are variable depending upon the specifics of your emergency department visit. If you don't have a primary care physician on staff, we will provide you with a referral. We always advise you to contact your personal physician following an emergency department visit to inform them of the circumstance of the visit and for follow-up with them and/or the need for any referrals to a consulting specialist. The emergency department will also refer you to a specialist when appropriate. This referral assures that you have the opportunity for follow-up care with a specialist. All of these measure are taken in an effort to provide you with optimal care, which includes your follow-up. Under all circumstances we always encourage you to contact your private physician who remains a resource for coordinating your care. When calling for follow-up care, please make the office aware that this follow-up is from your recent emergency room visit. If for any reason you are refused follow-up, please contact the [facility] Emergency Department at and asked to speak to the emergency department charge nurse. [facility] [address] [place] [address] [address] [facility] - General Surgery Professional Building [address] [place] [address], [address] [place] [address] 1. Eat a low-fat diet as directed and as discussed. You can alternate ibuprofen and Tylenol as directed for pain and discomfort. 2. Follow-up with a general surgeon as discussed. Return to the ED as needed and as discussed. Sepsis Event Note (ED) - Evaluation Sepsis Screening Result: No Definite Risk
--- NOTE | 2020-10-12 22:41 | US ---
INDICATION: Right upper quadrant pain TECHNIQUE: Multiple grayscale sonographic images of the right upper quadrant the abdomen. COMPARISON: CT abdomen pelvis with contrast 10/12/2020, ultrasound abdomen limited 09/09/2020 FINDINGS: Liver: Normal parenchymal echotexture. No suspicious lesions. No intrahepatic biliary dilatation. Common bile duct: Normal caliber measuring up to 5 mm. Gallbladder: Multiple shadowing gallstones present. No wall thickening or pericholecystic fluid. Negative sonographic Angel sign. Pancreas: The visualized proximal pancreas is unremarkable. The distal pancreas is obscured. Vasculature: Normal caliber abdominal aorta. Patent intrahepatic IVC. Patent main portal vein. Right kidney: Measures 10.7 cm in length. Normal cortical thickness and parenchymal echotexture. No hydronephrosis. IMPRESSION: Cholelithiasis without sonographic evidence of cholecystitis. Dictated by Gianluca Wang MD @ Oct 12 2020 10:34PM Signed by Dr. Gianluca Wang @ Oct 12 2020 10:39PM
[2020-10-12 23:14] VITALS: PULSE 86
[2020-10-13 00:43] VITALS: BP 130/88
== END 2020-10-12 23:20 | disposition home or self-care (01) ==
LOC: MW.ED 18:44
DX: K80.80 Other cholelithiasis without obstruction (principal); I10 Essential (primary) hypertension; Z79.899 Other long term (current) drug therapy
CPT/HCPCS: 36415; 74177; 76705; 80053; 81003; 83605; 85025; 96374; 96375; 99284; J1885; J2270; J2405; Q9967

== ENCOUNTER 2020-10-15 10:55 | Day surgery (SDC) | payer OTHER ==
[~2020-10-15 10:55] MED LIST: Glycopyrrolate 0.2 MG/ML SDV ONE; Lactated Ringers 1,000 ML IV SCH; Midazolam 1 MG/ML 2 ML SDV ONE; Ondansetron 4 MG/2 ML SDV ONE; Propofol 200 MG/20 ML SDV ONE; fentaNYL 100 MCG/2 ML SDV ONE
--- NOTE | 2020-10-15 12:02 | PCM.PREANE ---
Preanesthetic Assessment - Anesthesia/Transfusion/Family Hx Anesthesia History: No Prior Anesthesia Family History of Anesthesia Reaction: No Transfusion History: No Prior Transfusion(s) - Review of Systems General: No Symptoms Pulmonary: No Symptoms Cardiovascular: No Symptoms Gastrointestinal: No Symptoms Neurological: No Symptoms Other: Reports: None - Physical Assessment NPO Status Date: 10/15/20 NPO Status Time: 06:00 Vital Signs: Last Vital Signs Temp 36.9 C 10/15/20 11:32 Pulse 88 10/15/20 11:32 Resp 16 10/15/20 11:32 BP 158/99 H 10/15/20 11:32 Pulse Ox 99 10/15/20 11:32 Height: 1.8 m Weight: 97.976 kg ASA Class: 2 Mental Status: Alert & Oriented x3 Airway Class: Mallampati = 2 Dentition: Reports: Normal Dentition Thyro-Mental Finger Breadths: 3 Mouth Opening Finger Breadths: 3 ROM/Head Extension: Full Lungs: Clear to Auscultation, Normal Respiratory Effort Cardiovascular: Regular Rate, Regular Rhythm - Allergies Allergies/Adverse Reactions: Allergies Allergy/AdvReac Type Severity Reaction Status Date / Time No Known Allergies Allergy Verified 10/15/20 11:29 - Acknowledgements Anesthesia Type Planned: MAC (The patient understands and accepts the anesthetic risks and benefits of MAC. All questions answered. Consent signed. ) Pt an Appropriate Candidate for the Planned Anesthesia: Yes Alternatives and Risks of Anesthesia Discussed w Pt/Guardian: Yes Pt/Guardian Understands and Agrees with Anesthesia Plan: Yes PreAnesthesia Questionnaire HEENT History: Reports: Allergic Rhinitis (p), Other (See Below) Other HEENT History: wears glasses/contacts Cardiovascular History: Reports: Hypertension Respiratory History: Reports: Other (See Below) Other Respiratory History: states he snores- was scheduled for a sleep study but "it didn't work out" Gastrointestinal History: Reports: Other (See Below) Other Gastrointestinal History: occasional heartburn Genitourinary History: Reports: None Musculoskeletal History: Reports: Arthritis Neurological History: Reports: None, Other (See Below) Other Neuro History: hx seizure as a kid Psychiatric History: Reports: None Endocrine/Metabolic History: Reports: Obesity/BMI 30+ Hematologic History: Reports: None Immunologic History: Reports: None Oncologic (Cancer) History: Reports: None Dermatologic History: Reports: None - Infectious Disease History Infectious Disease History: Reports: Chicken Pox, Other (See Below) (COVID NEGATIVE) - Past Surgical History Head Surgeries/Procedures: Reports: None - History Comment History Comment: ETOH "1X A MONTH" - SUBSTANCE USE Tobacco Use Status *Q: Never Tobacco User Recreational Drug Use History: No - HOME MEDS Home Medications: Home Meds Losartan Potassium 50 mg PO DAILY 09/09/20 [History] amLODIPine Besylate [Amlodipine Besylate] 10 mg PO DAILY 09/09/20 [History] - CURRENT (IN HOUSE) MEDS Current Meds: Current Medications Lactated Ringer's (Ringers, Lactated) 1,000 mls @ 125 mls/hr IV ASDIRECTED [facility] Last Admin: 10/15/20 11:28 Dose: 125 mls/hr Documented by:
--- NOTE | 2020-10-15 12:20 | PCM.OPNOTE ---
- General Post-Op/Procedure Note Date of Surgery/Procedure: 10/15/20 Operative Procedure(s): EGD with biopsies Findings: Minimal gastritis irregular GE junction dictation number [id number] Pre Op Diagnosis: abdominal pain Post-Op Diagnosis: minimal gastritis. Irregular GE junction Primary Surgeon: Sang Meraz Pathology: biopsies from EGD Complications: None Condition: Good
--- NOTE | 2020-10-15 12:55 | PCM.POSTAN ---
POST ANESTHESIA ASSESSMENT - MENTAL STATUS Mental Status: Alert, Oriented - VITAL SIGNS Vital Signs: Last Vital Signs Temp 36.9 C 10/15/20 11:32 Pulse 76 10/15/20 12:28 Resp 13 10/15/20 12:28 BP 159/89 H 10/15/20 12:28 Pulse Ox 97 10/15/20 12:28 - RESPIRATORY Respiratory Status: Respiratory Rate WNL, Airway Patent, O2 Saturation Stable - CARDIOVASCULAR CV Status: Pulse Rate WNL, Blood Pressure Stable - GASTROINTESTINAL GI Status: No Symptoms - PAIN Pain Score: 0 - POST OP HYDRATION Hydration Status: Adequate & Stable - OBSERVATIONS Free Text/Narrative:: The patient is awake, alert and in no acute distress. There were no apparent anesthetic complications at this time.
--- NOTE | 2020-10-15 12:57 | PCM48HPAN ---
Post Anesthesia Note - EVALUATION WITHIN 48HRS OF ANESTHETIC Vital Signs in Normal Range: Yes Patient Participated in Evaluation: Yes Respiratory Function Stable: Yes Airway Patent: Yes Cardiovascular Function Stable: Yes Hydration Status Stable: Yes Pain Control Satisfactory: Yes Nausea and Vomiting Control Satisfactory: Yes Mental Status Recovered: Yes Vital Signs: Last Vital Signs Temp 36.9 C 10/15/20 11:32 Pulse 76 10/15/20 12:28 Resp 13 10/15/20 12:28 BP 159/89 H 10/15/20 12:28 Pulse Ox 97 10/15/20 12:28 - COMMENTS/OBSERVATIONS Free Text/Narrative:: The patient has no complaints at this time. Discharge per criteria.
[2020-10-15 13:26] VITALS: BP 168/90; PULSE 84
--- NOTE | 2020-10-15 16:32 | OR ---
SURGEON: TONY VIERA MD DATE OF PROCEDURE: 10/15/2020 PREOPERATIVE DIAGNOSIS: Abdominal pain. POSTOPERATIVE DIAGNOSES: 1. Minimal gastritis. 2. Slightly irregular GE junction. PROCEDURE PERFORMED: Esophagogastroduodenoscopy with biopsies. PRIMARY SURGEON: Tony Viera MD ANESTHESIA: With anesthesiologist. EXTENT OF EGD: To the second part of duodenum LIMITATIONS: None. REASON FOR PROCEDURE: The patient is a pleasant 40-year-old gentleman who had some epigastric pain. He did have an ultrasound, it did show some thickened gallbladder and gallstones. A CT scan also showed some thickening of the stomach with possible peptic ulcer disease. At the time, the patient was offered a cholecystectomy. He said he wanted to further investigate the possible peptic ulcer disease. Since seeing him, he has also had another likely gallbladder attack. I did go over again with the patient risks, goals, and alternatives of the procedure, the EGD. PROCEDURE IN DETAIL: Physical examination was performed. The major risks and benefits associated with the procedure were explained to the patient in detail. The patient verbalized understanding and agreement of the same. The patient was then connected to appropriate monitoring device and IV started. EKG, pulse, pulse oximetry, blood pressure, and capnography were monitored throughout the procedure. Conscious oxygen and sedation were provided by the anesthesiologist. The patient was placed in left lateral decubitus position. Sedation was began. After adequate sedation was achieved, an upper endoscope was advanced under direct visualization without difficulty in the upper GI tract. The anatomy and mucosa of the esophagus, GE junction, stomach, pylorus, and at least the second part of duodenum were inspected. Duodenum appeared normal. Scope was brought up to the stomach. Both retrograde and antegrade views of the stomach were done. The patient had some potentially very minimal gastritis. I did do biopsies of the pylorus and antrum area to check for H pylori. The scope was brought up to the GE junction. GE junction was approximately 38 cm from incisor. The squamocolumnar junction was slightly irregular, so I did four- quadrant biopsies at this area. The scope was brought back to the stomach. Biopsy sites had good hemostasis. The stomach was desufflated. The scope was brought up to the GE junction. Biopsies sites also had good hemostasis. Scope was brought up to the esophagus. Esophagus appeared normal. Scope was completely removed and procedure was terminated. ENDOSCOPIC DIAGNOSES: Minimal gastritis and irregular gastroesophageal junction. RECOMMENDATIONS: The patient should follow up in clinic to go over his pathology. The patient should also follow up in clinic to discuss his possible cholecystectomy. POLA SANTOS /[id number] MTDD
== END 2020-10-15 12:55 | disposition home or self-care (01) ==
LOC: MW.SDS 10:55
PROVIDERS: ATTEND Surgery
DX: K29.50 Unspecified chronic gastritis without bleeding (principal); B96.81 Helicobacter pylori [H. pylori] as the cause of diseases classified elsewhere; K31.89 Other diseases of stomach and duodenum; K80.20 Calculus of gallbladder without cholecystitis without obstruction; I10 Essential (primary) hypertension; E66.9 Obesity, unspecified; Z79.899 Other long term (current) drug therapy; Z68.30 Body mass index [BMI] 30.0-30.9, adult
CPT/HCPCS: 43239; 88305; 88312; J2250; J2405; J2704; J3010; J3490; J7120; 00731

== ENCOUNTER 2021-02-03 10:29 | Day surgery (SDC) | payer OTHER ==
[~2021-02-03 10:29] MED LIST changes: +Acetaminophen 1,000 MG in Premix Bag 1 BAG IV ONE; +Albuterol 0.083% 2.5 MG/3 ML Neb Soln NEB PRN; -Glycopyrrolate 0.2 MG/ML SDV ONE; +HYDROmorphone 2 MG/ML Syringe IVPUSH PRN; +Metoclopramide 10 MG/2 ML SDV IVPUSH PRN; -Midazolam 1 MG/ML 2 ML SDV ONE; +Morphine 2 MG/ML SYRINGE IVPUSH PRN; +Naloxone 0.4 MG/ML Syringe IVPUSH PRN; +Ondansetron 4 MG/2 ML SDV IVPUSH PRN; -Ondansetron 4 MG/2 ML SDV ONE; +Pregabalin 75 MG Cap PO SCH; -Propofol 200 MG/20 ML SDV ONE; +cefOXitin 2 GM in Premix Bag 1 BAG IV ONE; +fentaNYL 100 MCG/2 ML SDV IVPUSH PRN; -fentaNYL 100 MCG/2 ML SDV ONE
[2021-02-03] MEDS ORDERED: Indocyanine Green 25 MG SDV ONE (10:48)
[2021-02-03] MEDS ORDERED: Morphine 10 MG/ML Syringe ONE (11:07)
[2021-02-03] MEDS ORDERED: propofoL 100 ML ONE (11:07)
[2021-02-03] MEDS ORDERED: fentaNYL 100 MCG/2 ML SDV ONE (11:07)
--- NOTE | 2021-02-03 11:10 | PCM.PREANE ---
Preanesthetic Assessment - Anesthesia/Transfusion/Family Hx Anesthesia History: Prior Anesthesia Without Reaction Transfusion History: No Prior Transfusion(s) - Review of Systems General: No Symptoms Pulmonary: No Symptoms Cardiovascular: Other (HTN) Gastrointestinal: No Symptoms Neurological: No Symptoms Other: Reports: None - Physical Assessment NPO Status Date: 02/03/21 NPO Status Time: 00:00 Vital Signs: Last Vital Signs Temp Pulse 94 02/03/21 10:45 Resp 16 02/03/21 10:45 BP 164/102 H 02/03/21 10:55 Pulse Ox 98 02/03/21 10:45 Height: 5 ft 10 in Weight: 220 lb ASA Class: 2 Mental Status: Alert & Oriented x3 Airway Class: Mallampati = 2 Dentition: Reports: Normal Dentition Thyro-Mental Finger Breadths: 4 Mouth Opening Finger Breadths: 4 ROM/Head Extension: Full Lungs: Clear to Auscultation, Normal Respiratory Effort Cardiovascular: Regular Rate, Regular Rhythm - Allergies Allergies/Adverse Reactions: Allergies Allergy/AdvReac Type Severity Reaction Status Date / Time No Known Allergies Allergy Verified 02/03/21 11:07 - Blood Blood Available: No - Anesthesia Plan Pre-Op Medication Ordered: Antacids - Acknowledgements Anesthesia Type Planned: General Anesthesia Pt an Appropriate Candidate for the Planned Anesthesia: Yes Alternatives and Risks of Anesthesia Discussed w Pt/Guardian: Yes Pt/Guardian Understands and Agrees with Anesthesia Plan: Yes PreAnesthesia Questionnaire HEENT History: Reports: Allergic Rhinitis, Other (See Below) Other HEENT History: wears glasses/contacts Cardiovascular History: Reports: Hypertension Respiratory History: Reports: None Gastrointestinal History: Reports: Cholelithiasis, GERD Genitourinary History: Reports: None Musculoskeletal History: Reports: Arthritis Neurological History: Reports: Other (See Below) Other Neuro History: hx seizure as a kid Psychiatric History: Reports: None Endocrine/Metabolic History: Reports: Obesity/BMI 30+ Hematologic History: Reports: None Immunologic History: Reports: None Oncologic (Cancer) History: Reports: None Dermatologic History: Reports: None - Infectious Disease History Infectious Disease History: Reports: Chicken Pox, Other (See Below) (COVID NEGATIVE) - Past Surgical History Head Surgeries/Procedures: Reports: None HEENT Surgical History: Reports: None Cardiovascular Surgical History: Reports: None Respiratory Surgical History: Reports: None GI Surgical History: Reports: EGD Male Surgical History: Reports: None Endocrine Surgical History: Reports: None Neurological Surgical History: Reports: None Musculoskeletal Surgical History: Reports: None Oncologic Surgical History: Reports: None Dermatological Surgical History: Reports: None - History Comment History Comment: ETOH "1X A MONTH" - SUBSTANCE USE Tobacco Use Status *Q: Never Tobacco User - HOME MEDS Home Medications: Home Meds Losartan Potassium 50 mg PO DAILY 09/09/20 [History] amLODIPine Besylate [Amlodipine Besylate] 10 mg PO DAILY 09/09/20 [History] Acetaminophen [Tylenol] 2 tab PO ASDIRECTED PRN 02/02/21 [History] Acetaminophen/Diphenhydramine [Tylenol Pm Ex-Strength Caplet] 1 tab PO BEDTIME PRN 02/02/21 [History] Omeprazole 20 mg PO BID 02/02/21 [History] - CURRENT (IN HOUSE) MEDS Current Meds: Current Medications Albuterol (Albuterol 0.083% 2.5 Mg/3 Ml Neb Soln) 2.5 mg NEB ONETIME PRN PRN Reason: Wheezing Droperidol (Droperidol 5 Mg/2 Ml Sdv) 0.625 mg IVPUSH ONETIME PRN PRN Reason: Nausea/Vomiting Fentanyl (Fentanyl 100 Mcg/2 Ml Sdv) 50 mcg IVPUSH Q5M PRN PRN Reason: Pain (mild 1-3) Hydromorphone HCl (Hydromorphone 2 Mg/Ml Syringe) 1 mg IVPUSH Q10M PRN PRN Reason: Pain (moderate 4-6) Lactated Ringer's (Ringers, Lactated) 1,000 mls @ 125 mls/hr IV ASDIRECTED [facility] Last Admin: 02/03/21 11:05 Dose: 125 mls/hr Documented by: Metoclopramide HCl (Metoclopramide 10 Mg/2 Ml Sdv) 10 mg IVPUSH ONETIME PRN PRN Reason: Nausea/Vomiting Morphine Sulfate (Morphine 2 Mg/Ml Syringe) 2 mg IVPUSH Q10M PRN PRN Reason: Pain (severe 7-10) Naloxone HCl (Naloxone 0.4 Mg/Ml Syringe) 0.1 mg IVPUSH ASDIRECTED PRN PRN Reason: Respiratory Depression Ondansetron HCl (Ondansetron 4 Mg/2 Ml Sdv) 4 mg IVPUSH ONETIME PRN PRN Reason: Nausea/Vomiting Pregabalin (Pregabalin 75 Mg Cap) 150 mg PO DAILY KIRA Last Admin: 02/03/21 11:06 Dose: 150 mg Documented by: Discontinued Medications Cefoxitin Sodium 2 gm/ Premix 50 mls @ 100 mls/hr IV ONETIME ONE Stop: 02/02/21 16:50 Acetaminophen 1,000 mg/ Premix 100 mls @ 400 mls/hr IV NOW ONE Stop: 02/02/21 16:35 Last Admin: 02/03/21 11:06 Dose: 400 mls/hr Documented by: Acetaminophen (Ofirmev 1000 Mg/100 Ml) Confirm Administered Dose 100 mls @ as directed .ROUTE .STK-MED ONE Stop: 02/03/21 09:50 Indocyanine Green (Indocyanine Green 25 Mg Sdv) Confirm Administered Dose 25 mg .ROUTE .STK-MED ONE Stop: 02/03/21 10:49
[2021-02-03] MEDS ORDERED: Bupivacaine 25%/EPINEPHrine/PF 30 ML ONE (11:42)
[2021-02-03] MEDS ORDERED: Octyl 2-Cyanoacrylate 1 Tube ONE (11:42)
[2021-02-03] MEDS ORDERED: Rocuronium Bromide 50 MG/5 ML Syringe ONE ×2 (12:13→12:15)
[2021-02-03] MEDS ORDERED: Sugammadex Sodium 200 MG/2 ML VIAL ONE (12:13)
[2021-02-03] MEDS ORDERED: Metoclopramide 10 MG/2 ML SDV ONE (12:14)
[2021-02-03] MEDS ORDERED: Glycopyrrolate 0.2 MG/ML SDV ONE (12:14)
[2021-02-03] MEDS ORDERED: Esmolol 100 MG/10 ML SDV ONE (12:29)
[2021-02-03] MEDS ORDERED: ceFAZolin 1 GM Vial ONE ×2 (13:07)
[2021-02-03] MEDS ORDERED: Ketorolac 30 MG/ML SDV ONE (13:07)
--- NOTE | 2021-02-03 13:30 | PCM.OPNOTE ---
- General Post-Op/Procedure Note Date of Surgery/Procedure: 02/03/21 Operative Procedure(s): Laparoscopic cholecystectomy Findings: edematous gallbladder dictation number [id number] Pre Op Diagnosis: Cholelithiases Post-Op Diagnosis: chronic cholecystitis Primary Surgeon: Sang Meraz Pathology: gallbladder EBL in mLs: 5 Complications: None Condition: Good
--- NOTE | 2021-02-03 14:31 | PCM.POSTAN ---
POST ANESTHESIA ASSESSMENT - MENTAL STATUS Mental Status: Somnolent - VITAL SIGNS Vital Signs: Last Vital Signs Temp 97.3 F 02/03/21 13:26 Pulse 85 02/03/21 14:08 Resp 14 02/03/21 14:08 BP 138/73 02/03/21 14:08 Pulse Ox 93 L 02/03/21 14:08 - RESPIRATORY Respiratory Status: Respiratory Rate WNL, Airway Patent, O2 Saturation Stable - CARDIOVASCULAR CV Status: Pulse Rate WNL, Blood Pressure Stable - GASTROINTESTINAL GI Status: No Symptoms - POST OP HYDRATION Hydration Status: Adequate & Stable
--- NOTE | 2021-02-03 14:32 | PCM48HPAN ---
Post Anesthesia Note - EVALUATION WITHIN 48HRS OF ANESTHETIC Vital Signs in Normal Range: Yes Patient Participated in Evaluation: Yes Respiratory Function Stable: Yes Airway Patent: Yes Cardiovascular Function Stable: Yes Hydration Status Stable: Yes Pain Control Satisfactory: Yes Nausea and Vomiting Control Satisfactory: Yes Mental Status Recovered: Yes Vital Signs: Last Vital Signs Temp 97.3 F 02/03/21 13:26 Pulse 85 02/03/21 14:08 Resp 14 02/03/21 14:08 BP 138/73 02/03/21 14:08 Pulse Ox 93 L 02/03/21 14:08
[2021-02-03 15:51] VITALS: BP 132/75; PULSE 88
--- NOTE | 2021-02-03 21:42 | OR ---
SURGEON: TONY VIERA MD DATE OF PROCEDURE: 02/03/2021 PREOPERATIVE DIAGNOSIS: Symptomatic cholelithiasis. POSTOPERATIVE DIAGNOSIS: Chronic cholecystitis. PROCEDURE PERFORMED: Laparoscopic cholecystectomy. SURGEON: Tony Viera MD ANESTHESIA: General. SPECIMEN: Gallbladder. COMPLICATIONS: None. ESTIMATED BLOOD LOSS: 5 mL. REASON FOR PROCEDURE: The patient is a pleasant 40-year-old gentleman who has been having issues with some upper abdominal pain. He did have an ultrasound and CT scan which showed a distended gallbladder with gallstones, no gallbladder thickening. Did go over with the patient risks, goals, and alternatives to procedure again. Risks include, but not limited to bleeding, infection, bile leak, injury to nearby structures or common bile duct or duodenum, need to convert to open, loose stools, and that this could be something other than his gallbladder. The patient understands and wishes to proceed. PROCEDURE IN DETAIL: The patient was brought back to the OR. He was prepped and draped in usual sterile fashion. SCDs were placed. Preoperative antibiotics were given. Anesthesia was provided by the anesthesia team. After time-out was performed, an infraumbilical incision was made. This was carried down to the fascia. I then entered in open Mercedes technique, and the Mercedes trocar was placed. Now, insufflation was began and pneumoperitoneum was established. Three more 5 mm trocars were placed; one in the midepigastric, one in the upper right abdomen, and one in the lower right abdomen were placed under direct visualization. The gallbladder was grasped and elevated. There were adhesions of the omentum to the gallbladder. These were taken down with Harmonic scalpel. The infundibulum of the gallbladder was then grasped, and the cystic duct and artery were then carefully dissected out. This part of the gallbladder was slightly edematous, but it was mainly dissected out with blunt dissection. Did get a good critical view. The patient did get indocyanine green which showed the cystic duct and gave another bolus to the cystic artery. The gallbladder was also dissected up about a fourth [address] way up, and no other tubular structures were seen. Now, the cystic duct and cystic artery were clipped and transected. Rest of the gallbladder was taken off the liver fossa with Harmonic scalpel. The gallbladder was placed in EndoCatch bag and removed. Because of the size of the gallbladder, the infraumbilical fascial incision had to be extended to get it out. Now, attention was brought back to the operative site. Some minimal suction and irrigation, there was good hemostasis. Clips appeared to be still in place and intact. Now, the 5 mm trocars were removed under direct visualization, and pneumoperitoneum was released. The infraumbilical fascial opening was closed with [id number] 0 Vicryl x2 because of the extension of the incision to get the gallbladder out. All port sites were again injected with the remaining of the local and closed with 4-0 Monocryl and Dermabond. The patient was transferred to recovery room in stable condition. Sponge and needle counts were correct. POLA / DANIELLE /[id number] MTDD
== END 2021-02-03 15:20 | disposition home or self-care (01) ==
LOC: MW.SDS 10:29
PROVIDERS: ATTEND Surgery
DX: K80.10 Calculus of gallbladder with chronic cholecystitis without obstruction (principal); K82.8 Other specified diseases of gallbladder; I10 Essential (primary) hypertension; Z79.899 Other long term (current) drug therapy
CPT/HCPCS: 47562; 88304; A9270; J0131; J0690; J1170; J1885; J2270; J2704; J2765; J3010; J3490; J7120; 00790

== ENCOUNTER 2021-10-08 07:26 | Day surgery (SDC) | payer BC, OTHER ==
[~2021-10-08 07:26] MED LIST changes: -Acetaminophen 1,000 MG in Premix Bag 1 BAG IV ONE; -Albuterol 0.083% 2.5 MG/3 ML Neb Soln NEB PRN; -HYDROmorphone 2 MG/ML Syringe IVPUSH PRN; +Lidocaine 2% 5 ML SDV ONE; -Metoclopramide 10 MG/2 ML SDV IVPUSH PRN; -Morphine 2 MG/ML SYRINGE IVPUSH PRN; -Naloxone 0.4 MG/ML Syringe IVPUSH PRN; -Ondansetron 4 MG/2 ML SDV IVPUSH PRN; +Ondansetron 4 MG/2 ML SDV ONE; -Pregabalin 75 MG Cap PO SCH; +Propofol 200 MG/20 ML SDV ONE; -cefOXitin 2 GM in Premix Bag 1 BAG IV ONE; -fentaNYL 100 MCG/2 ML SDV IVPUSH PRN; +fentaNYL 100 MCG/2 ML SDV ONE
[2021-10-08] MEDS ORDERED: Glycopyrrolate 0.2 MG/ML SDV ONE (08:39)
[2021-10-08 09:24] VITALS: BP 121/79; PULSE 79
== END 2021-10-08 09:50 | disposition home or self-care (01) ==
LOC: MW.SDS 07:26
PROVIDERS: ATTEND Surgery
DX: K29.50 Unspecified chronic gastritis without bleeding (principal); K31.89 Other diseases of stomach and duodenum; I10 Essential (primary) hypertension; K21.9 Gastro-esophageal reflux disease without esophagitis; E66.9 Obesity, unspecified; Z79.899 Other long term (current) drug therapy; Z68.31 Body mass index [BMI] 31.0-31.9, adult
CPT/HCPCS: 43239; J2405; J2704; J3010; J3490; J7120; 00731

== ENCOUNTER 2022-02-24 19:05 | Emergency (ER) | payer BC ==
[2022-02-24] MEDS ORDERED: Labetalol 100 MG/20 ML MDV IVPUSH ONE (21:00)
[2022-02-24 22:02] LABS: CARBON DIOXIDE,CO2 25.2 mmol/L (21.0-32.0); POTASSIUM,K 3.4 mmol/L (3.5-5.1)
[2022-02-24] MEDS ORDERED: Iopamidol 755 MG/ML 500 ML Multipack Bottle IVPUSH STA (22:38)
[2022-02-24 23:21] VITALS: BP 136/94; PULSE 78
== END 2022-02-24 23:18 | disposition home or self-care (01) ==
LOC: MW.ED 19:05
DX: R10.11 Right upper quadrant pain (principal); I10 Essential (primary) hypertension; E66.9 Obesity, unspecified; Z68.30 Body mass index [BMI] 30.0-30.9, adult; Z79.899 Other long term (current) drug therapy; Z90.49 Acquired absence of other specified parts of digestive tract
CPT/HCPCS: 36415; 74177; 80053; 83690; 83735; 84484; 85025; 93005; 96374; 99284; J3490; Q9967; 93010